=== PATIENT | male | born 1990 | race Caucasian/White ===

== ENCOUNTER 2016-10-30 02:33 | Emergency (ER) | payer OTHER ==
[2016-10-30 02:45] VITALS: BP 156/99
--- NOTE | 2016-10-30 09:30 | ED ---
Progress - Progress Note Progress Note: 0620Pt not in room when I went to evaluate him. Reported by nurse to have good visual acuity. Pt left without being seen and without notifying staff. Course/Dx - Diagnoses Provider Diagnoses: Patient left without being seen
== END 2016-10-30 06:20 | disposition left against medical advice (07) ==
LOC: ED 02:33
DX: H57.11 Ocular pain, right eye (principal); Z53.21 Procedure and treatment not carried out due to patient leaving prior to being seen by health care provider

== ENCOUNTER 2022-02-09 21:44 | Inpatient (IN) ==
[2022-02-09] MEDS ORDERED: Lactated Ringers 1000 ml BAG 1,000 ML IV ONE (21:56)
[2022-02-09 22:36] LABS: ABS Eosinophils 0.2 10^3/ul (0-0.6); ABS Lymphocytes 1.3 10^3/ul (1.0-4.8); ABS Monocytes 0.9 10^3/ul (0-0.8); ABS Neutrophils 5.6 10^3/ul (1.5-7.7); Eosinophil % 2.3 %; Hematocrit 41 % (42-52); Hemoglobin 13.8 g/dL (14.0-18.0); Lymphocyte % 16.5 %; Mean Corpuscular HGB Conc 34 g/dL (31-36); Mean Corpuscular Hemoglobin 30 pg (27-31); Mean Corpuscular Volume 87 fL (80-94); Mean Platelet Volume 8.6 fL (7.4-10.4); Platelet Count 179 10^3/uL (150-450); Red Blood Count 4.67 10^6 /uL (4.18-5.48); Red Cell Distribution Width 13 % (10-15); White Blood Count 8.1 10^3/uL (3.5-10.8)
[2022-02-09 23:12] LABS: Albumin 4.5 g/dL (3.2-5.2); Globulin 2.2 g/dL (2-4); Potassium 3.4 mmol/L (3.5-5.0); Total Bilirubin 0.5 mg/dL (0.2-1.0); Total Protein 6.7 g/dL (6.4-8.9); eGFR CKD-EPI 120.3 (>60)
[2022-02-10 00:03] LABS: High Sensitivity Troponin 1 Hr 188 pg/mL (<20)
[2022-02-10] MEDS ORDERED: Heparin DRIP 25,000 UNITS BAG 25,000 UNITS/500 ML BAG IV SCH (00:15)
[2022-02-10 01:54] LABS: C Reactive Protein 54.56 mg/L (<8.01); HDL Cholesterol 39.2 mg/dL; eGFR CKD-EPI 126.4 (>60)
[2022-02-10] MEDS: Heparin 5000 UNITS/ML 1 mL VIAL IV SCH ×2 (01:55→10:01)
[2022-02-10 02:09] LABS: TSH Ultra Thyroid Stim Horm 1.82 mcIU/mL (0.34-5.60)
[2022-02-10] MEDS ORDERED: Potassium Chloride LIQUID 20 MEQ/15 ML LIQUID PO ONE (03:45)
[2022-02-10 06:22] LABS: ABS Eosinophils 0.1 10^3/ul (0-0.6); ABS Lymphocytes 1.2 10^3/ul (1.0-4.8); ABS Monocytes 1.1 10^3/ul (0-0.8); ABS Neutrophils 4.3 10^3/ul (1.5-7.7); Eosinophil % 1.1 %; Hematocrit 40 % (42-52); Hemoglobin 13.5 g/dL (14.0-18.0); Lymphocyte % 17.7 %; Mean Corpuscular HGB Conc 34 g/dL (31-36); Mean Corpuscular Hemoglobin 29 pg (27-31); Mean Corpuscular Volume 87 fL (80-94); Mean Platelet Volume 8.9 fL (7.4-10.4); Platelet Count 218 10^3/uL (150-450); Red Blood Count 4.62 10^6 /uL (4.18-5.48); Red Cell Distribution Width 13 % (10-15); White Blood Count 6.7 10^3/uL (3.5-10.8)
[2022-02-10 06:32] LABS: INR 1.11 (0.89-1.11)
[2022-02-10 07:04] LABS: Albumin 4.3 g/dL (3.2-5.2); Albumin/Globulin Ratio 1.7 (1-3); Calcium 9.2 mg/dL (8.6-10.3); Globulin 2.5 g/dL (2-4); Potassium 3.8 mmol/L (3.5-5.0); Total Bilirubin 0.5 mg/dL (0.2-1.0); Total Protein 6.8 g/dL (6.4-8.9); eGFR CKD-EPI 122.7 (>60)
[2022-02-10 11:12] LABS: High Sensitivity Troponin 1 Hr 51 pg/mL (<20)
[2022-02-10 15:18] LABS: ABS Eosinophils 0.1 10^3/ul (0-0.6); ABS Lymphocytes 1.4 10^3/ul (1.0-4.8); ABS Monocytes 0.7 10^3/ul (0-0.8); ABS Neutrophils 4.4 10^3/ul (1.5-7.7); Eosinophil % 0.9 %; Hematocrit 41 % (42-52); Hemoglobin 13.7 g/dL (14.0-18.0); Lymphocyte % 20.9 %; Mean Corpuscular HGB Conc 34 g/dL (31-36); Mean Corpuscular Hemoglobin 29 pg (27-31); Mean Corpuscular Volume 86 fL (80-94); Mean Platelet Volume 8.9 fL (7.4-10.4); Platelet Count 217 10^3/uL (150-450); Red Blood Count 4.72 10^6 /uL (4.18-5.48); Red Cell Distribution Width 13 % (10-15); White Blood Count 6.6 10^3/uL (3.5-10.8)
[2022-02-10 15:28] LABS: Activated Partial Thrombo Time 33.7 seconds (26.0-38.0); INR 1.1 (0.89-1.11)
[2022-02-10 15:54] LABS: eGFR CKD-EPI 121.7 (>60)
[2022-02-10 16:06] LABS: TSH Ultra Thyroid Stim Horm 0.76 mcIU/mL (0.34-5.60)
[2022-02-10] MEDS: Heparin 5000 UNITS/ML 1 mL VIAL SUBCUT SCH ×2 (21:23→21:41)
[2022-02-11 06:02] LABS: ABS Eosinophils 0.2 10^3/ul (0-0.6); ABS Lymphocytes 1.8 10^3/ul (1.0-4.8); ABS Monocytes 0.9 10^3/ul (0-0.8); ABS Neutrophils 3.8 10^3/ul (1.5-7.7); Eosinophil % 3.5 %; Hematocrit 41 % (42-52); Hemoglobin 14.2 g/dL (14.0-18.0); Lymphocyte % 26.8 %; Mean Corpuscular HGB Conc 35 g/dL (31-36); Mean Corpuscular Hemoglobin 30 pg (27-31); Mean Corpuscular Volume 87 fL (80-94); Mean Platelet Volume 9.1 fL (7.4-10.4); Platelet Count 209 10^3/uL (150-450); Red Blood Count 4.73 10^6 /uL (4.18-5.48); Red Cell Distribution Width 13 % (10-15); White Blood Count 6.7 10^3/uL (3.5-10.8)
[2022-02-11 06:24] LABS: Calcium 9.2 mg/dL (8.6-10.3); Potassium 3.9 mmol/L (3.5-5.0); eGFR CKD-EPI 121.2 (>60)
[2022-02-11] MEDS ORDERED: Potassium Chlor 20 meq TAB.ER PO ONE (07:14)
[2022-02-11] MEDS: Heparin 5000 UNITS/ML 1 mL VIAL SUBCUT SCH ×2 (08:23→13:37)
[2022-02-11 12:02] VITALS: BP 145/78
[2022-02-15 10:51] LABS: Plasma Free Metanephrine <0.20 nmol/L (<0.50); Plasma Free Normetanephrine 0.22 nmol/L (<0.90)
== END 2022-02-11 15:05 | disposition home or self-care (01) | DRG 312 ==
LOC: ED 21:44 → EDHOLD 02-10 00:31 → SUATTDRO 02-10 00:31 → MEDTELE 02-11 00:33
PROVIDERS: ADMIT Internal Medicine; ATTEND Internal Medicine